=== PATIENT | female | born 1945 | race Caucasian/White ===

== ENCOUNTER 2018-05-31 14:28 | Outpatient (CLI) | payer MEDICARE, BC ==
[~2018-05-31] VITALS: Ht 163.8 cm; Wt 112.5 kg
[~2018-05-31 14:28] MED LIST: AMIT-189 PO; ASPI-1071 PO; BACL10TA PO; CALC600T12 PO; CARV25TA PO; CELE-193 PO; CINN500C16 PO; ESOM40CA PO; EST1T PO; FURO40TA4 PO; HYDR-3972 PO; LEVO75TA PO; LISI1TAB9 PO; MELA10TA2 PO; MULT-1141 PO; OXYB1PAT TOP; POTA10CA44 PO; PRAV80TA3 PO; SERT100T PO; VITC500T PO
[2018-05-31 14:50] LABS: TOTAL HEMOGLOBIN 14.8 G/dl (12.0-16.0)
[2018-05-31] MEDS ORDERED: albuterol 2.5 MG/3 ML nebule NEB ONE (15:15)
== END 2018-05-31 23:59 | disposition home or self-care (01) ==
LOC: RT 14:28
PROVIDERS: ATTEND Internal Medicine Pulmonary Disease
DX: J44.9 Chronic obstructive pulmonary disease, unspecified (principal); I10 Essential (primary) hypertension; F17.200 Nicotine dependence, unspecified, uncomplicated; Z79.82 Long term (current) use of aspirin; Z96.653 Presence of artificial knee joint, bilateral
CPT/HCPCS: 85018; 94060; 94727; 94729; 94760

== ENCOUNTER 2019-10-03 10:05 | Day surgery (SDC) | payer MEDICARE, BC ==
[2019-10-02 17:06] LABS: BASOPHILS % (AUTO) 0.6 % (0-1); EOSINOPHILS # (AUTO) 0.1 X10'3 (0-0.9); EOSINOPHILS % (AUTO) 1.2 % (0-6); HEMATOCRIT 41.1 % (35.0-45.0); HEMOGLOBIN 13.4 g/dl (12.0-16.0); LYMPHOCYTES # (AUTO) 1.4 X10'3 (1.1-4.8); LYMPHOCYTES % (AUTO) 16.7 % (21-51); MEAN CORPUSCULAR HEMOGLOBIN 32.5 PG (27.0-31.0); MEAN CORPUSCULAR HGB CONC 32.7 g/dL (33.0-36.5); MEAN CORPUSCULAR VOLUME 99.5 FL (78-98); MEAN PLATELET VOLUME 8.4 FL (7.4-10.4); MONOCYTES # (AUTO) 0.5 X10'3 (0-0.9); MONOCYTES % (AUTO) 5.7 % (2-12); NEUTROPHILS # (AUTO) 6.6 X10'3 (1.8-7.7); NEUTROPHILS % (AUTO) 75.8 % (42-75); PLATELET COUNT 192 X10'3 (140-440); RED BLOOD COUNT 4.13 X10'6 (4.20-5.60); RED CELL DISTRIBUTION WIDTH 15.1 % (11.5-14.5); WHITE BLOOD COUNT 8.7 X10'3 (4.5-11.0)
[2019-10-02 17:09] LABS: ALBUMIN 3.5 G/DL (3.4-5.0); ANION GAP 11 (8-16); BLOOD UREA NITROGEN 13 MG/DL (7-18); BUN/CREATININE RATIO 12.7 (6.6-38.0); CHLORIDE 102 MMOL/L (99-107); CREATININE 1.02 MG/DL (0.40-0.90); GLUCOSE 112 MG/DL (70-104); POTASSIUM 4.2 MMOL/L (3.5-5.1); SODIUM 140 MMOL/L (135-145); TOTAL CARBON DIOXIDE 27.1 MMOL/L (24-32); eGFR 53 ML/MIN
[2019-10-02 17:26] LABS: PARTIAL THROMBOPLASTIN TIME 27 SECONDS (22-32)
[2019-10-03] VITALS (11 sets, daily range): BP systolic 118–170; BP diastolic 64–89
[~2019-10-03] VITALS: Ht 162.6 cm; Wt 113.5 kg
[~2019-10-03 10:05] MED LIST changes: +LISI1TAB32 PO; -LISI1TAB9 PO
[2019-10-03] MEDS ORDERED: LORazepam 0.5 MG tablet PO PRN (10:40)
[2019-10-03] MEDS ORDERED: normal saline 1,000 ML IV SCH (10:40)
[2019-10-03] MEDS ORDERED: diphenhydrAMINE 25mg capsule PO PRN (10:40)
[2019-10-03] MEDS ORDERED: MIRA25TA PO (11:02)
[2019-10-03] MEDS ORDERED: midazolam 2 mg/2 ml injection ONE (13:45)
[2019-10-03] MEDS ORDERED: verapamil 2.5 mg/ml inj IV ONE (13:45)
[2019-10-03] MEDS ORDERED: LIDOcaine 1% (10mg/ml)w/preservative injection 20ml MDV ONE (13:45)
[2019-10-03] MEDS ORDERED: nitroGLYCERIN-Tridil 50MG/D5W 250 ML IV ONE (13:45)
[2019-10-03] MEDS ORDERED: heparin 1,000unit/ml 10ml vial 10 ML ONE (13:45)
[2019-10-03] MEDS ORDERED: fentaNYL/PF 50MCG/1 ML 2ML syringe ONE (13:45)
[2019-10-03] MEDS ORDERED: iohexol 350MG/ML 100ml bottle IV ONE (13:46)
[2019-10-03] MEDS ORDERED: iohexol 350 MG/ML 50ML vial IV ONE ×4 (13:46→15:20)
[2019-10-03 15:11] LABS: ISTAT Hct MIX 35 %PCV (35-48); ISTAT O2 SATURATION MIX VENOUS 74 % (60-80); ISTAT SOURCE MIX
[2019-10-03 15:16] LABS: ISTAT HGB ART 11.9 g/dl (12.0-16.0); ISTAT Hct ART 35 %PCV (35-48); ISTAT O2 SATURATION ARTERIAL 93 % (95-98); ISTAT SOURCE ART
== END 2019-10-03 20:00 | disposition home or self-care (01) ==
LOC: U 10:05 → MED 3N 10:05 → U 20:00
PROVIDERS: ATTEND Internal Medicine Cardiovascular Disease
DX: R94.39 Abnormal result of other cardiovascular function study (principal); I25.10 Atherosclerotic heart disease of native coronary artery without angina pectoris; I11.0 Hypertensive heart disease with heart failure; I50.32 Chronic diastolic (congestive) heart failure; E88.81 Metabolic syndrome and other insulin resistance; J44.9 Chronic obstructive pulmonary disease, unspecified; G47.33 Obstructive sleep apnea (adult) (pediatric); E03.9 Hypothyroidism, unspecified; K21.9 Gastro-esophageal reflux disease without esophagitis; G62.9 Polyneuropathy, unspecified; G89.29 Other chronic pain; E78.49 Other hyperlipidemia; M17.0 Bilateral primary osteoarthritis of knee; M19.072 Primary osteoarthritis, left ankle and foot; M19.071 Primary osteoarthritis, right ankle and foot; Z79.899 Other long term (current) drug therapy; Z79.82 Long term (current) use of aspirin; Z96.653 Presence of artificial knee joint, bilateral; Z98.890 Other specified postprocedural states; Z87.891 Personal history of nicotine dependence
CPT/HCPCS: 36415; 80048; 82803; 85014; 85025; 85610; 85730; 93005; 93460; 93567; 99152; 99153; C1769; C1894; J1644; J2001; J2250; J3010; J7030; Q0163; Q9967; A4620; A5120; C1751; J3490